=== PATIENT | female | born 1945 | race Caucasian/White ===

== ENCOUNTER 2018-01-25 14:30 | Outpatient (RCR) | payer MEDICARE, MEDICAID, SELFPAY ==
[2018-01-18 14:21] VITALS: BP 127/56; PULSE 79; RESP 18; TEMP 36.6; BMI 29.0
[2018-01-18 17:20] LABS: Hematocrit 40.8 % (37-47); Mean Corp Hgb Conc 31.9 g/gl (32-36); Mean Corpuscular Volume 87.7 fL (81-99); Mean Platelet Vol. 9.3 fl (6.2-12.0); Platelet Count 274 K/mm3 (150-450); RBC Distribution Width CV 13.6 % (11.6-14.6); RBC Distribution Width SD 43.2 fl (35.1-43.9); Red Blood Count 4.65 M/mm3 (4.2-5.4)
[2018-01-18 17:22] LABS: Scan Indicated on CBC? Y/N NO
--- NOTE | 2018-01-18 17:25 | PCM.WC.HP ---
(1) Surgical wound dehiscence Status: Chronic Current Visit: Yes Qualifiers: Encounter type: initial encounter Qualified Code(s): T81.31XA - Disruption of external operation (surgical) wound, not elsewhere classified, initial encounter Code(s): T81.31XA - Disruption of external operation (surgical) wound, not elsewhere classified, initial encounter (2) Wound of abdomen Status: Chronic Current Visit: Yes Code(s): S31.109A - Unspecified open wound of abdominal wall, unspecified quadrant without penetration into peritoneal cavity, initial encounter (3) Wound, open, abdominal wall, anterior Status: Chronic Current Visit: Yes Qualifiers: Encounter type: initial encounter Qualified Code(s): S31.109A - Unspecified open wound of abdominal wall, unspecified quadrant without penetration into peritoneal cavity, initial encounter Code(s): S31.109A - Unspecified open wound of abdominal wall, unspecified quadrant without penetration into peritoneal cavity, initial encounter (4) Lupus Status: Chronic Current Visit: No Code(s): L93.0 - Discoid lupus erythematosus (5) Hypertension Status: Chronic Current Visit: No Code(s): I10 - Essential (primary) hypertension (6) Seizure disorder Status: Chronic Current Visit: No Code(s): G40.909 - Epilepsy, unspecified, not intractable, without status epilepticus (7) Dementia Status: Chronic Current Visit: No Code(s): F03.90 - Unspecified dementia without behavioral disturbance (8) Renal insufficiency Status: Chronic Current Visit: No Code(s): N28.9 - Disorder of kidney and ureter, unspecified (9) Hyperlipidemia Status: Chronic Current Visit: No Code(s): E78.5 - Hyperlipidemia, unspecified (10) Overweight (BMI 25.0-29.9) Status: Chronic Current Visit: No Code(s): E66.3 - Overweight (11) Hypothyroidism Status: Chronic Current Visit: No Code(s): E03.9 - Hypothyroidism, unspecified (12) Skin picking habit Status: Chronic Current Visit: No Code(s): F42.4 - Excoriation (skin-picking) disorder (13) Compulsive skin picking Status: Chronic Current Visit: No Code(s): 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 The wound has been present for approximately 6 weeks. The patient has been treated by her primary care physician, having received a 10 day course of Keflex, a shot of Rocephin, and the use of Bactroban topically. There is uncertainty as to the surgical procedure which was performed in the , although years ago. The patient resides in an assisted living facility, and suffers from dementia, as well as other multiple medical problems. Past Medical History Past Medical History: Chronic Problems Surgical wound dehiscence (Chronic) Wound of abdomen (Chronic) Wound, open, abdominal wall, anterior (Chronic) Lupus (Chronic) Hypertension (Chronic) Seizure disorder (Chronic) Dementia (Chronic) Renal insufficiency (Chronic) Hyperlipidemia (Chronic) Overweight (BMI 25.0-29.9) (Chronic) Hypothyroidism (Chronic) Skin picking habit (Chronic) Compulsive skin picking (Chronic) Past Medical History: Patient has a history of lupus, hypertension, renal insufficiency, seizure disorder, hyperlipidemia, and hypothyroidism. Her history is negative for myocardial infarction, congestive heart failure, cerebrovascular accident, cancer, pulmonary disease, diabetes mellitus, and thromboembolic disease. Surgical History: - - Patient has a history of cholecystectomy, repair of a vaginal fissure, and abdominal surgery in the , the reason for which is not certain. She is a AB 5. Allergies/Adverse Reactions: Allergies Sulfa (Sulfonamide Antibiotics) Allergy (Verified 01/18/18 14:47) Hives Home Medications: Ambulatory Orders Medication Instructions Recorded Acetaminophen [Tylenol Extra 500 mg PO Q6H PRN PRN 01/18/18 Strength] Alprazolam [Xanax] 0.25 mg PO Q6H PRN PRN 01/18/18 Aspirin E.C. [Ecotrin] 81 mg PO DAILY@0801/18/18 Calcium Carbonate/Vitamin D3 1 tab PO BID 01/18/18 [Calcium 600-Vit D3 400 Tablet] Cephalexin 500 mg PO TID 01/18/18 Donepezil HCl 10 mg PO DAILY 01/18/18 Ferrous Sulfate 325 mg PO DAILY@0801/18/18 Lamotrigine 100 mg PO BID 01/18/18 Levothyroxine Sodium [Levoxyl] 25 mcg PO DAILY 01/18/18 Lisinopril [Zestril] 20 mg PO DAILY 01/18/18 Loratadine 10 mg PO DAILY 01/18/18 Memantine HCl [Namenda Xr] 28 mg PO DAILY 01/18/18 Multivitamin [Multiple Vitamins] 1 each PO DAILY 01/18/18 Omeprazole 40 mg PO DAILY 01/18/18 Potassium Chloride [Klor-Con] 20 meq PO DAILY 01/18/18 Quetiapine Fumarate [Seroquel] 25 mg PO QHS 01/18/18 Sertraline HCl [Zoloft] 100 mg PO DAILY 01/18/18 Simvastatin 20 mg PO DAILY 01/18/18 Sucralfate 1 gm PO TID 01/18/18 - Family History Paternal - - The patient's father in his 50s from black lung disease. He was a estate tax examiner. Patient's mother at the age of 70, with a history of chronic obstructive pulmonary disease, the result of smoking. Social History: The patient resides in an assisted living facility. She is a . She denies the use of alcohol and tobacco products. Smoking Status: Never smoker Tobacco Use: Non-smoker Alcohol: None Drugs: None Review of Systems Constitutional: Denies: Chills, Fever, Weight Change Eyes: Denies: Pain, Vision Change HEENT: Denies: Difficulty Hearing, Difficulty Swallowing, Sinus Congestion Cardiovascular: Denies: Chest Pain, Palpitations Respiratory: Denies: Cough, Shortness of Breath Gastrointestinal: Denies: Diarrhea, Nausea, Vomiting Genitourinary: Denies: Dysuria, Hematuria Endocrine: Denies: Heat/ Cold Intolerance, Polydipsia, Polyuria Hematologic/ Lymphatic: Denies: Easy Bruising, Easy Bleeding - Physical Exam Vital Signs Temp Pulse Resp BP 97.8 F 79 18 127/56 H 01/18/18 14:21 01/18/18 14:21 01/18/18 14:21 01/18/18 14:21 General: Alert, Oriented x3, Cooperative, No apparent distress, Well developed, Well nourished, Confused HEENT: Atraumatic, PERRLA, EOMI, Normocephalic Oral: Moist Mucosa, No Gingival or Mucosal Lesions/ Ulcerations Neck: Supple, No JVD, Negative Carotid Bruits, Negative Hepatojugular Reflux, No Nodes, No Nuchal Rigidity, Trachea Midline Lungs: Clear to auscultation, Normal air movement, No rhonchi, No wheeze, No rales Cardiovascular: Regular rate, Regular Rhythm, Normal S1, Normal S2, No murmurs, No Ectopic Activity Abdomen: Bowel Sounds Present, Soft, Non Tender, Non-Distended, - - A very superficial wound as noted in the midst of the patient's vertical midline incision inferior to the umbilicus. Dimensions are documented elsewhere. It is superficial. Extremities: No clubbing, No cyanosis, No edema, No Calf Tenderness, - - Superficial excoriations are noted near the patient's ankles, said to be due to chronic habitual picking Skin: No rashes Wound Measurements and Assessment WC - Nurse 1 - General Ulcer Measurement Start: 01/18/18 14:21 Freq: Status: Active Protocol: Activity Type Activity Date Activity User E-Sign Co-Sign Detail Recorded Client Recorded Date Recorded By Document 01/18/18 14:21 [id number] 01/18/18 14:37 01/18/18 14:21 Wound Center Nurse 1 [Ulcer Assessment] 1-abdomen -Combined with other wound No -Current Size (cm) - Length 3.2 -Current Size (cm) - Width 0.1 -Current Size (cm) - Depth 0.1 -Total Square Cm 0.32 -Photo Taken Yes -Epithelialization Large 67-100% -Tunneling No -Undermining/Tunneling No -Circular Undermining No -Exudate Amt Small (1-33%) -Exudate Type Serosanguineous -Wound Margin Flat & Intact -Granulation Amt Large (67-100%) -Granulation Quality Red -Slough/Fibrin Yes -Necrosis Amt Small (1-33%) -Necrotic Tissue Type Adherent Slough -Structure Exposed N/A -Texture (Hazel-wound Skin Appearance) Assessed Scarring -Moisture (Hazel-wound Skin Appearance Assessed ) Dry/Scaly -Color (Hazel-wound Skin Appearance) Assessed -Temperature (Hazel-wound Skin No Abnormality Appearance) (Pt Warm) -Tenderness on Palpation (Hazel-wound No Skin Appearance) -Ulcer Cleansing Rinsed/ Irrigated with Saline -Foul Odor after Cleansing No -Anesthetic Used 4% Lidocaine Solution [Edema Assessment] -Lower Limb Edema Present NA - Nurse 2 - General Ulcer CM Notes Start: 01/18/18 14:21 Freq: Status: Active Protocol: Activity Type Activity Date Activity User E-Sign Co-Sign Detail Recorded Client Recorded Date Recorded By Document 01/18/18 16:05 [id number] 01/18/18 16:34 01/18/18 16:05 Wound Center Nurse 2 [Procedure/Treatment] 1-abdomen -Time 16:05 -Correct Patient Yes -Correct Side, Site, Position Yes -Correct Procedure Yes -Procedure Performed Yes -Type of Procedure Debridement -Clinical Debridement Subcutaneous -Post Debridement Size (cm) - Length 1.0 -Post Debridement Size (cm) - Width 0.2 -Post Debridement Size (cm) - Depth 0.1 -Total Square Cm 0.20 -Wound/Ulcer Outcome Not Healed -Ulcer Cleansing Rinsed/ Irrigated with Saline -Foul Odor after Cleansing No -Bioengineered Tissue No -Topical Lidocaine (%) 4 -Lidocaine (ml) 5 -Bleeding Controlled with NA -Treatment Response Procedure Tolerated Well [See Physician Procedure note for Specifics] Pain Scale: 0-10 Numeric [Pain] -Is Patient Pain Free? Yes Neurological: Cranial nerves II-XII grossly intact, Neuro grossly intact Psych/Mental Status: - - Some mild signs of dementia are apparent Debridement Note Post-Debridement Measurements/Treatment - Nurse 2 - General Ulcer CM Notes Start: 01/18/18 14:21 Freq: Status: Active Protocol: Activity Type Activity Date Activity User E-Sign Co-Sign Detail Recorded Client Recorded Date Recorded By Document 01/18/18 16:05 [id number] 01/18/18 16:34 01/18/18 16:05 Wound Center Nurse 2 1-abdomen -Time 16:05 -Correct Patient Yes -Correct Side, Site, Position Yes -Correct Procedure Yes -Procedure Performed Yes -Type of Procedure Debridement -Clinical Debridement Subcutaneous -Post Debridement Size (cm) - Length 1.0 -Post Debridement Size (cm) - Width 0.2 -Post Debridement Size (cm) - Depth 0.1 -Total Square Cm 0.20 -Wound/Ulcer Outcome Not Healed -Ulcer Cleansing Rinsed/ Irrigated with Saline -Foul Odor after Cleansing No -Bioengineered Tissue No -Topical Lidocaine (%) 4 -Lidocaine (ml) 5 -Bleeding Controlled with NA -Treatment Response Procedure Tolerated Well Pain Scale: 0-10 Numeric Is Patient Pain Free? Yes Laterality: Not Applicable - Abdominal wound at incision site, midline Type of Debridement: Excisional debridement Anesthesia Used: 4% Lidocaine Solution Depth: Down to and including healthy tissue, in the subcutaneous layer Percentage of wound debrided: 100 Instrument Used: 5mm curette Severity: Fat Layer Exposed Amount of bleeding with debridement: Mild Bleeding Controlled with: Compression and gauze Patient tolerated procedure well Assessment/Plan Active Problems Surgical wound dehiscence (Chronic) Wound of abdomen (Chronic) Wound, open, abdominal wall, anterior (Chronic) Assessment: This is a 72-year-old female who underwent an abdominal surgical procedure in the , though the nature of the surgery is unknown. The procedure was performed by means of an infraumbilical vertical midline incision. The patient presents now with a small dehiscence at the surgical incision site, which has been present for approximately 6 weeks. It is known that the patient tends to be habitual chart picker of her skin. In fact, the patient's presenting abdominal wound may be related to her habitual picking tendency. Based upon physical examination, the wound is superficial, and does not appear to extend into the deeper layers. Plan: Adequate nutrition has been encouraged. We are to obtain routine laboratory blood work, including a CBC, comprehensive metabolic profile, and a serum prealbumin. We are to use a sterile adhesive drape overlying the patient's wound, and to use an overlying dressing to serve as a preventative measure against the patient using her fingers or fingernails to pick at her wound. The small size and superficial nature of the patient's wound suggests that healing should be likely in a short period of time. Patient will return in 1 week for reassessment. Influenza vaccine was not administered. The patient is not a smoker. The patient stands 5 feet 1 inch tall. She weighs 154 pounds. Her BMI is 29.1. This places the patient in the overweight category. Weight loss has been recommended, and collaboration with the patient's primary care physician has been suggested.
--- NOTE | 2018-01-18 17:43 | HP.PCM_ITS ---
(1) Surgical wound dehiscence Status: Chronic Current Visit: Yes Qualifiers: Encounter type: initial encounter Qualified Code(s): T81.31XA - Disruption of external operation (surgical) wound, not elsewhere classified, initial encounter Code(s): T81.31XA - Disruption of external operation (surgical) wound, not elsewhere classified, initial encounter (2) Wound of abdomen Status: Chronic Current Visit: Yes Code(s): S31.109A - Unspecified open wound of abdominal wall, unspecified quadrant without penetration into peritoneal cavity, initial encounter (3) Wound, open, abdominal wall, anterior Status: Chronic Current Visit: Yes Qualifiers: Encounter type: initial encounter Qualified Code(s): S31.109A - Unspecified open wound of abdominal wall, unspecified quadrant without penetration into peritoneal cavity, initial encounter Code(s): S31.109A - Unspecified open wound of abdominal wall, unspecified quadrant without penetration into peritoneal cavity, initial encounter (4) Lupus Status: Chronic Current Visit: No Code(s): L93.0 - Discoid lupus erythematosus (5) Hypertension Status: Chronic Current Visit: No Code(s): I10 - Essential (primary) hypertension (6) Seizure disorder Status: Chronic Current Visit: No Code(s): G40.909 - Epilepsy, unspecified, not intractable, without status epilepticus (7) Dementia Status: Chronic Current Visit: No Code(s): F03.90 - Unspecified dementia without behavioral disturbance (8) Renal insufficiency Status: Chronic Current Visit: No Code(s): N28.9 - Disorder of kidney and ureter, unspecified (9) Hyperlipidemia Status: Chronic Current Visit: No Code(s): E78.5 - Hyperlipidemia, unspecified (10) Overweight (BMI 25.0-29.9) Status: Chronic Current Visit: No Code(s): E66.3 - Overweight (11) Hypothyroidism Status: Chronic Current Visit: No Code(s): E03.9 - Hypothyroidism, unspecified (12) Skin picking habit Status: Chronic Current Visit: No Code(s): F42.4 - Excoriation (skin-picking ) disorder (13) Compulsive skin picking Status: Chronic Current Visit: No Code(s): 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 The wound has been present for approximately 6 weeks. The patient has been treated by her primary care physician, having received a 10 day course of Keflex, a shot of Rocephin, and the use of Bactroban topically. There is uncertainty as to the surgical procedure which was performed in the , although years ago. The patient resides in an assisted living facility, and suffers from dementia, as well as other multiple medical problems. Past Medical History Past Medical History: Chronic Problems Surgical wound dehiscence (Chronic) Wound of abdomen (Chronic) Wound, open, abdominal wall, anterior (Chronic) Lupus (Chronic) Hypertension (Chronic) Seizure disorder (Chronic) Dementia (Chronic) Renal insufficiency (Chronic) Hyperlipidemia (Chronic) Overweight (BMI 25.0-29.9) (Chronic) Hypothyroidism (Chronic) Skin picking habit (Chronic) Compulsive skin picking (Chronic) Past Medical History: Patient has a history of lupus, hypertension, renal insufficiency, seizure disorder, hyperlipidemia, and hypothyroidism. Her history is negative for myocardial infarction, congestive heart failure, cerebrovascular accident, cancer, pulmonary disease, diabetes mellitus, and thromboembolic disease. Surgical History: - - Patient has a history of cholecystectomy, repair of a vaginal fissure, and abdominal surgery in the , the reason for which is not certain. She is a AB 5. Allergies/Adverse Reactions: Allergies Sulfa (Sulfonamide Antibiotics) Allergy (Verified 01/18/18 14:47) Hives Home Medications: Ambulatory Orders Medication Instructions Recorded Acetaminophen [Tylenol Extra 500 mg PO Q6H PRN PRN 01/18/18 Strength] Alprazolam [Xanax] 0.25 mg PO Q6H PRN PRN 01/18/18 Aspirin E.C. [Ecotrin] 81 mg PO DAILY@0801/18/18 Calcium Carbonate/Vitamin D3 1 tab PO BID 01/18/18 [Calcium 600-Vit D3 400 Tablet] Cephalexin 500 mg PO TID 01/18/18 Donepezil HCl 10 mg PO DAILY 01/18/18 Ferrous Sulfate 325 mg PO DAILY@0801/18/18 Lamotrigine 100 mg PO BID 01/18/18 Levothyroxine Sodium [Levoxyl] 25 mcg PO DAILY 01/18/18 Lisinopril [Zestril] 20 mg PO DAILY 01/18/18 Loratadine 10 mg PO DAILY 01/18/18 Memantine HCl [Namenda Xr] 28 mg PO DAILY 01/18/18 Multivitamin [Multiple Vitamins] 1 each PO DAILY 01/18/18 Omeprazole 40 mg PO DAILY 01/18/18 Potassium Chloride [Klor-Con] 20 meq PO DAILY 01/18/18 Quetiapine Fumarate [Seroquel] 25 mg PO QHS 01/18/18 Sertraline HCl [Zoloft] 100 mg PO DAILY 01/18/18 Simvastatin 20 mg PO DAILY 01/18/18 Sucralfate 1 gm PO TID 01/18/18 - Family History Paternal - - The patient's father in his 50s from black lung disease. He was a coal washer. Patient's mother at the age of 70, with a history of chronic obstructive pulmonary disease, the result of smoking. Social History: The patient resides in an assisted living facility. She is a . She denies the use of alcohol and tobacco products. Smoking Status: Never smoker Tobacco Use: Non-smoker Alcohol: None Drugs: None Review of Systems Constitutional: Denies: Chills, Fever, Weight Change Eyes: Denies: Pain, Vision Change HEENT: Denies: Difficulty Hearing, Difficulty Swallowing, Sinus Congestion Cardiovascular: Denies: Chest Pain, Palpitations Respiratory: Denies: Cough, Shortness of Breath Gastrointestinal: Denies: Diarrhea, Nausea, Vomiting Genitourinary: Denies: Dysuria, Hematuria Endocrine: Denies: Heat/ Cold Intolerance, Polydipsia, Polyuria Hematologic/ Lymphatic: Denies: Easy Bruising, Easy Bleeding - Physical Exam Vital Signs Temp Pulse Resp BP 97.8 F 79 18 127/56 H 01/18/18 14:21 01/18/18 14:21 01/18/18 14:21 01/18/18 14:21 General: Alert, Oriented x3, Cooperative, No apparent distress, Well developed, Well nourished, Confused HEENT: Atraumatic, PERRLA, EOMI, Normocephalic Oral: Moist Mucosa, No Gingival or Mucosal Lesions/ Ulcerations Neck: Supple, No JVD, Negative Carotid Bruits, Negative Hepatojugular Reflux, No Nodes, No Nuchal Rigidity, Trachea Midline Lungs: Clear to auscultation, Normal air movement, No rhonchi, No wheeze, No rales Cardiovascular: Regular rate, Regular Rhythm, Normal S1, Normal S2, No murmurs, No Ectopic Activity Abdomen: Bowel Sounds Present, Soft, Non Tender, Non-Distended, - - A very superficial wound as noted in the midst of the patient's vertical midline incision inferior to the umbilicus. Dimensions are documented elsewhere. It is superficial. Extremities: No clubbing, No cyanosis, No edema, No Calf Tenderness, - - Superficial excoriations are noted near the patient's ankles, said to be due to chronic habitual picking Skin: No rashes Wound Measurements and Assessment WC - Nurse 1 - General Ulcer Measurement Start: 01/18/18 14:21 Freq: Status: Active Protocol: Activity Type Activity Date Activity User E-Sign Co-Sign Detail Recorded Client Recorded Date Recorded By Document 01/18/18 14:21 [id number] 01/18/18 14:37 01/18/18 14:21 Wound Center Nurse 1 [Ulcer Assessment] 1-abdomen -Combined with other wound No -Current Size (cm) - Length 3.2 -Current Size (cm) - Width 0.1 -Current Size (cm) - Depth 0.1 -Total Square Cm 0.32 -Photo Taken Yes -Epithelialization Large 67-100% -Tunneling No -Undermining/Tunneling No -Circular Undermining No -Exudate Amt Small (1-33%) -Exudate Type Serosanguineous -Wound Margin Flat & Intact -Granulation Amt Large (67-100%) -Granulation Quality Red -Slough/Fibrin Yes -Necrosis Amt Small (1-33%) -Necrotic Tissue Type Adherent Slough -Structure Exposed N/A -Texture (Hazel-wound Skin Appearance) Assessed Scarring -Moisture (Hazel-wound Skin Appearance Assessed ) Dry/Scaly -Color (Hazel-wound Skin Appearance) Assessed -Temperature (Hazel-wound Skin No Abnormality Appearance) (Pt Warm) -Tenderness on Palpation (Hazel-wound No Skin Appearance) -Ulcer Cleansing Rinsed/ Irrigated with Saline -Foul Odor after Cleansing No -Anesthetic Used 4% Lidocaine Solution [Edema Assessment] -Lower Limb Edema Present NA - Nurse 2 - General Ulcer CM Notes Start: 01/18/18 14:21 Freq: Status: Active Protocol: Activity Type Activity Date Activity User E-Sign Co-Sign Detail Recorded Client Recorded Date Recorded By Document 01/18/18 16:05 [id number] 01/18/18 16:34 01/18/18 16:05 Wound Center Nurse 2 [Procedure/Treatment] 1-abdomen -Time 16:05 -Correct Patient Yes -Correct Side, Site, Position Yes -Correct Procedure Yes -Procedure Performed Yes -Type of Procedure Debridement -Clinical Debridement Subcutaneous -Post Debridement Size (cm) - Length 1.0 -Post Debridement Size (cm) - Width 0.2 -Post Debridement Size (cm) - Depth 0.1 -Total Square Cm 0.20 -Wound/Ulcer Outcome Not Healed -Ulcer Cleansing Rinsed/ Irrigated with Saline -Foul Odor after Cleansing No -Bioengineered Tissue No -Topical Lidocaine (%) 4 -Lidocaine (ml) 5 -Bleeding Controlled with NA -Treatment Response Procedure Tolerated Well [See Physician Procedure note for Specifics] Pain Scale: 0-10 Numeric [Pain] -Is Patient Pain Free? Yes Neurological: Cranial nerves II-XII grossly intact, Neuro grossly intact Psych/Mental Status: - - Some mild signs of dementia are apparent Debridement Note Post-Debridement Measurements/Treatment - Nurse 2 - General Ulcer CM Notes Start: 01/18/18 14:21 Freq: Status: Active Protocol: Activity Type Activity Date Activity User E-Sign Co-Sign Detail Recorded Client Recorded Date Recorded By Document 01/18/18 16:05 [id number] 01/18/18 16:34 01/18/18 16:05 Wound Center Nurse 2 1-abdomen -Time 16:05 -Correct Patient Yes -Correct Side, Site, Position Yes -Correct Procedure Yes -Procedure Performed Yes -Type of Procedure Debridement -Clinical Debridement Subcutaneous -Post Debridement Size (cm) - Length 1.0 -Post Debridement Size (cm) - Width 0.2 -Post Debridement Size (cm) - Depth 0.1 -Total Square Cm 0.20 -Wound/Ulcer Outcome Not Healed -Ulcer Cleansing Rinsed/ Irrigated with Saline -Foul Odor after Cleansing No -Bioengineered Tissue No -Topical Lidocaine (%) 4 -Lidocaine (ml) 5 -Bleeding Controlled with NA -Treatment Response Procedure Tolerated Well Pain Scale: 0-10 Numeric Is Patient Pain Free? Yes Laterality: Not Applicable - Abdominal wound at incision site, midline Type of Debridement: Excisional debridement Anesthesia Used: 4% Lidocaine Solution Depth: Down to and including healthy tissue, in the subcutaneous layer Percentage of wound debrided: 100 Instrument Used: 5mm curette Severity: Fat Layer Exposed Amount of bleeding with debridement: Mild Bleeding Controlled with: Compression and gauze Patient tolerated procedure well Assessment/Plan Active Problems Surgical wound dehiscence (Chronic) Wound of abdomen (Chronic) Wound, open, abdominal wall, anterior (Chronic) Assessment: This is a 72-year-old female who underwent an abdominal surgical procedure in the , though the nature of the surgery is unknown. The procedure was performed by means of an infraumbilical vertical midline incision. The patient presents now with a small dehiscence at the surgical incision site, which has been present for approximately 6 weeks. It is known that the patient tends to be habitual shrimp picker of her skin. In fact, the patient' s presenting abdominal wound may be related to her habitual picking tendency. Based upon physical examination, the wound is superficial, and does not appear to extend into the deeper layers. Plan: Adequate nutrition has been encouraged. We are to obtain routine laboratory blood work, including a CBC, comprehensive metabolic profile, and a serum prealbumin. We are to use a sterile adhesive drape overlying the patient' s wound, and to use an overlying dressing to serve as a preventative measure against the patient using her fingers or fingernails to pick at her wound. The small size and superficial nature of the patient's wound suggests that healing should be likely in a short period of time. Patient will return in 1 week for reassessment. Influenza vaccine was not administered. The patient is not a smoker. The patient stands 5 feet 1 inch tall. She weighs 154 pounds. Her BMI is 29.1. This places the patient in the overweight category. Weight loss has been recommended, and collaboration with the patient's primary care physician has been suggested.
[2018-01-18 17:48] LABS: AST(SGOT) 16 U/L (15-37); Alanine Aminotransfer ALT/SGPT 21 U/L (13-56); Albumin, Serum 3.7 g/dL (3.2-5.0); Alkaline Phosphatase 66 U/L (45-117); Anion Gap 8 (5-15); BUN 10 mg/dL (7-18); BUN/Creat Ratio 12.9 RATIO (10-20); Calcium,Total 8.8 mg/dL (8.5-10.1); Chloride 108 mmol/L (98-107); Creatinine, Serum 0.78 mg/dL (0.55-1.02); EST Glomerular Filtration Rate 78 mL/min (>60); Est Glom Filt Rate - Afr Amer 94 mL/min (>60); Globulin 3.6 g/dL (2.2-4.2); Glucose 105 mg/dL (74-106); Potassium 3.8 mmol/L (3.5-5.1); Protein, Total 7.3 g/dL (6.4-8.2); Sodium Level 142 mmol/L (136-145)
[2018-01-25 14:34] VITALS: BP 124/61; PULSE 70; RESP 18; TEMP 36.7; BMI 29.0
--- NOTE | 2018-01-25 15:36 | PCM.WC.HP ---
(1) Surgical wound dehiscence Status: Chronic Current Visit: Yes Qualifiers: Encounter type: subsequent encounter Qualified Code(s): T81.31XD - Disruption of external operation (surgical) wound, not elsewhere classified, subsequent encounter Code(s): T81.31XA - Disruption of external operation (surgical) wound, not elsewhere classified, initial encounter (2) Wound of abdomen Status: Chronic Current Visit: Yes Code(s): S31.109A - Unspecified open wound of abdominal wall, unspecified quadrant without penetration into peritoneal cavity, initial encounter (3) Wound, open, abdominal wall, anterior Status: Chronic Current Visit: Yes Qualifiers: Encounter type: subsequent encounter Qualified Code(s): S31.109D - Unspecified open wound of abdominal wall, unspecified quadrant without penetration into peritoneal cavity, subsequent encounter Code(s): S31.109A - Unspecified open wound of abdominal wall, unspecified quadrant without penetration into peritoneal cavity, initial encounter (4) Lupus Status: Chronic Current Visit: No Code(s): L93.0 - Discoid lupus erythematosus (5) Hypertension Status: Chronic Current Visit: No Code(s): I10 - Essential (primary) hypertension (6) Seizure disorder Status: Chronic Current Visit: No Code(s): G40.909 - Epilepsy, unspecified, not intractable, without status epilepticus (7) Dementia Status: Chronic Current Visit: No Code(s): F03.90 - Unspecified dementia without behavioral disturbance (8) Renal insufficiency Status: Chronic Current Visit: No Code(s): N28.9 - Disorder of kidney and ureter, unspecified (9) Hyperlipidemia Status: Chronic Current Visit: No Code(s): E78.5 - Hyperlipidemia, unspecified (10) Overweight (BMI 25.0-29.9) Status: Chronic Current Visit: No Code(s): E66.3 - Overweight (11) Hypothyroidism Status: Chronic Current Visit: No Code(s): E03.9 - Hypothyroidism, unspecified (12) Skin picking habit Status: Chronic Current Visit: Yes Code(s): F42.4 - Excoriation (skin-picking) disorder (13) Compulsive skin picking Status: Chronic Current Visit: Yes Code(s): 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 The wound had been present for approximately 6 weeks. The patient has been treated by her primary care physician, having received a 10 day course of Keflex, a shot of Rocephin, and the use of Bactroban topically. There is uncertainty as to the surgical procedure which was performed in the . The patient resides in an assisted living facility, and suffers from dementia, as well as other multiple medical problems. Past Medical History Past Medical History: Chronic Problems Surgical wound dehiscence (Chronic) Wound of abdomen (Chronic) Wound, open, abdominal wall, anterior (Chronic) Lupus (Chronic) Hypertension (Chronic) Seizure disorder (Chronic) Dementia (Chronic) Renal insufficiency (Chronic) Hyperlipidemia (Chronic) Overweight (BMI 25.0-29.9) (Chronic) Hypothyroidism (Chronic) Skin picking habit (Chronic) Compulsive skin picking (Chronic) Surgical History: - - Patient has a history of cholecystectomy, repair of a vaginal fissure, and abdominal surgery in the , the reason for which is not certain. She is a AB 5. Allergies/Adverse Reactions: Allergies Sulfa (Sulfonamide Antibiotics) Allergy (Verified 01/18/18 14:47) Hives Home Medications: Ambulatory Orders Medication Instructions Recorded Acetaminophen [Tylenol Extra 500 mg PO Q6H PRN PRN 01/18/18 Strength] Alprazolam [Xanax] 0.25 mg PO Q6H PRN PRN 01/18/18 Aspirin E.C. [Ecotrin] 81 mg PO DAILY@0800 01/18/18 Calcium Carbonate/Vitamin D3 1 tab PO BID 01/18/18 [Calcium 600-Vit D3 400 Tablet] Cephalexin 500 mg PO TID 01/18/18 Donepezil HCl 10 mg PO DAILY 01/18/18 Ferrous Sulfate 325 mg PO DAILY@0800 01/18/18 Lamotrigine 100 mg PO BID 01/18/18 Levothyroxine Sodium [Levoxyl] 25 mcg PO DAILY 01/18/18 Lisinopril [Zestril] 20 mg PO DAILY 01/18/18 Loratadine 10 mg PO DAILY 01/18/18 Memantine HCl [Namenda Xr] 28 mg PO DAILY 01/18/18 Multivitamin [Multiple Vitamins] 1 each PO DAILY 01/18/18 Omeprazole 40 mg PO DAILY 01/18/18 Potassium Chloride [Klor-Con] 20 meq PO DAILY 01/18/18 Quetiapine Fumarate [Seroquel] 25 mg PO QHS 01/18/18 Sertraline HCl [Zoloft] 100 mg PO DAILY 01/18/18 Simvastatin 20 mg PO DAILY 01/18/18 Sucralfate 1 gm PO TID 01/18/18 - Family History Paternal - - The patient's father in his 50s from black lung disease. He was a coal tram driver. Patient's mother at the age of 70, with a history of chronic obstructive pulmonary disease, the result of smoking. Smoking Status: Never smoker Tobacco Use: Non-smoker Alcohol: None Drugs: None Review of Systems Constitutional: Denies: Chills, Fever, Weight Change Eyes: Denies: Pain, Vision Change HEENT: Denies: Difficulty Hearing, Difficulty Swallowing, Sinus Congestion Cardiovascular: Denies: Chest Pain, Palpitations Respiratory: Denies: Cough, Shortness of Breath Gastrointestinal: Denies: Diarrhea, Nausea, Vomiting Genitourinary: Denies: Dysuria, Hematuria Endocrine: Denies: Heat/ Cold Intolerance, Polydipsia, Polyuria Hematologic/ Lymphatic: Denies: Easy Bruising, Easy Bleeding - Physical Exam Vital Signs Temp Pulse Resp BP 98.0 F 70 18 124/61 H 01/25/18 14:34 01/25/18 14:34 01/25/18 14:34 01/25/18 14:34 General: Alert, Oriented x3, Cooperative, No apparent distress, Well developed, Well nourished HEENT: Atraumatic, PERRLA, EOMI, Normocephalic Oral: Moist Mucosa Neck: No JVD Lungs: Normal air movement Abdomen: Bowel Sounds Present, Soft, Non Tender, Non-Distended, Obese, - - The wound is noted at the superior portion of a previous vertical midline incision inferior to the umbilicus. It is very small, and superficial. There is no sign of infection. Dimensions are documented elsewhere. There is minimal bioburden. The base of the wound is pink and healthy. Extremities: No clubbing, No cyanosis, No edema, No Calf Tenderness Skin: No rashes Wound Measurements and Assessment WC - Nurse 1 - General Ulcer Measurement Start: 01/18/18 14:21 Freq: Status: Active Protocol: Activity Type Activity Date Activity User E-Sign Co-Sign Detail Recorded Client Recorded Date Recorded By Document 01/25/18 14:34 BERHANE [id number] 01/25/18 14:43 BERHANE 01/25/18 14:34 Wound Center Nurse 1 [Ulcer Assessment] 1-abdomen -Combined with other wound No -Current Size (cm) - Length 1.2 -Current Size (cm) - Width 0.5 -Current Size (cm) - Depth 0.1 -Total Square Cm 0.60 -Photo Taken No -Epithelialization Small 1-33% -Tunneling No -Undermining/Tunneling No -Circular Undermining No -Exudate Amt Small (1-33%) -Exudate Type Serosanguineous -Wound Margin Flat & Intact -Granulation Amt Medium (34-66%) -Granulation Quality [place] -Slough/Fibrin Yes -Necrosis Amt Small (1-33%) -Necrotic Tissue Type Adherent Slough -Structure Exposed N/A -Texture (Hazel-wound Skin Appearance) Assessed Localized Edema Scarring -Moisture (Hazel-wound Skin Appearance Assessed ) Dry/Scaly -Color (Hazel-wound Skin Appearance) Assessed -Temperature (Hazel-wound Skin No Abnormality Appearance) (Pt Warm) -Tenderness on Palpation (Hazel-wound No Skin Appearance) -Ulcer Cleansing Rinsed/ Irrigated with Saline -Foul Odor after Cleansing No -Anesthetic Used 4% Lidocaine Solution [Edema Assessment] -Lower Limb Edema Present NA WC - Nurse 2 - General Ulcer CM Notes Start: 01/18/18 14:21 Freq: Status: Active Protocol: Activity Type Activity Date Activity User E-Sign Co-Sign Detail Recorded Client Recorded Date Recorded By Document 01/25/18 15:18 LAURA [id number] 01/25/18 15:27 LAURA 01/25/18 15:18 Wound Center Nurse 2 [Procedure/Treatment] 1-abdomen -Time 15:18 -Correct Patient Yes -Correct Side, Site, Position Yes -Correct Procedure Yes -Procedure Performed Yes -Type of Procedure Debridement -Clinical Debridement Subcutaneous -Post Debridement Size (cm) - Length 1.3 -Post Debridement Size (cm) - Width 0.4 -Post Debridement Size (cm) - Depth 0.1 -Total Square Cm 0.52 -Wound/Ulcer Outcome Not Healed -Ulcer Cleansing Rinsed/ Irrigated with Saline -Foul Odor after Cleansing No -Bioengineered Tissue No -Topical Lidocaine (%) 4 -Lidocaine (ml) 5 -Bleeding Controlled with NA -Treatment Response Procedure Tolerated Well [See Physician Procedure note for Specifics] Pain Scale: 0-10 Numeric [Pain] -Is Patient Pain Free? Yes Neurological: Cranial nerves II-XII grossly intact, Neuro grossly intact Psych/Mental Status: - - The patient suffers from dementia, and others repetitive statements, appearing to exhibit the outward signs of her dementia. Debridement Note Post-Debridement Measurements/Treatment WC - Nurse 2 - General Ulcer CM Notes Start: 01/18/18 14:21 Freq: Status: Active Protocol: Activity Type Activity Date Activity User E-Sign Co-Sign Detail Recorded Client Recorded Date Recorded By Document 01/18/18 16:05 [id number] 01/18/18 16:34 Document 01/25/18 15:18 [id number] 01/25/18 15:27 JS 01/18/18 01/25/18 16:05 15:18 Wound Center Nurse 2 1-abdomen -Time 16:05 15:18 -Correct Patient Yes Yes -Correct Side, Site, Position Yes Yes -Correct Procedure Yes Yes -Procedure Performed Yes Yes -Type of Procedure Debridement Debridement -Clinical Debridement Subcutaneous Subcutaneous -Post Debridement Size (cm) - Length 1.0 1.3 -Post Debridement Size (cm) - Width 0.2 0.4 -Post Debridement Size (cm) - Depth 0.1 0.1 -Total Square Cm 0.20 0.52 -Wound/Ulcer Outcome Not Healed Not Healed -Ulcer Cleansing Rinsed/ Rinsed/ Irrigated with Irrigated with Saline Saline -Foul Odor after Cleansing No No -Bioengineered Tissue No No -Topical Lidocaine (%) 4 4 -Lidocaine (ml) 5 5 -Bleeding Controlled with NA NA -Treatment Response Procedure Procedure Tolerated Well Tolerated Well Pain Scale: 0-10 Numeric Is Patient Pain Free? Yes Yes Laterality: Not Applicable - Midline abdominal incision Type of Debridement: Excisional debridement Anesthesia Used: 4% Lidocaine Solution Depth: Down to and including healthy tissue, in the subcutaneous layer Percentage of wound debrided: 100 Instrument Used: 3mm curette Severity: Fat Layer Exposed Amount of bleeding with debridement: Mild Bleeding Controlled with: Compression and gauze Patient tolerated procedure well Assessment/Plan Active Problems Surgical wound dehiscence (Chronic) Wound of abdomen (Chronic) Wound, open, abdominal wall, anterior (Chronic) Skin picking habit (Chronic) Compulsive skin picking (Chronic) Assessment: This is a 72-year-old female who underwent an abdominal surgical procedure in the , though the nature of the surgery is unknown. The procedure was performed by means of an infraumbilical vertical midline incision. The patient presented with a small dehiscence at the surgical incision site, which had been present for approximately 6 weeks. 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 In fact, the patient's presenting abdominal wound may be related to her habitual picking tendency. Based upon physical examination, the wound is superficial, and does not appear to extend into the deeper layers. The battery of diagnostic laboratory tests has been obtained, with results as follows: White blood count 6.0, hemoglobin 13.0, hematocrit 40.8, platelets 274,000, glucose 105, BUN 10 creatinine 0.78, total protein 7.3, albumin 3.7, calcium 8.8, AST 16, alkaline phosphatase 66, ALT 21, total bilirubin 0.10, sodium 142, potassium 3.8, chloride 108, prealbumin 29.0. Plan: Adequate nutrition has been encouraged. We are to implement the use of collagen hydrogel topically, applied every other day. An occlusive drape will then be applied. 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 It is learned that the original dressing placed last week, lasted only 2 days, presumably due to removal by the patient herself. We are to contact assisted living nursing personnel, to emphasize that efforts should be implemented to prevent patient from removing her dressings, and picking or scratching at her wound. The small size and superficial nature of the patient's wound suggests that healing should be likely in a short period of time. Patient will return in 2 weeks for reassessment, as she has transportation issues next week, and will be unable to return next week. Influenza vaccine was not administered. The patient is not a smoker. The patient stands 5 feet 1 inch tall. She weighs 154 pounds. Her BMI is 29.1. This places the patient in the overweight category. Weight loss has been recommended, and collaboration with the patient's primary care physician has been suggested.
--- NOTE | 2018-01-25 15:44 | HP.PCM_ITS ---
(1) Surgical wound dehiscence Status: Chronic Current Visit: Yes Qualifiers: Encounter type: subsequent encounter Qualified Code(s): T81.31XD - Disruption of external operation (surgical) wound, not elsewhere classified, subsequent encounter Code(s): T81.31XA - Disruption of external operation (surgical) wound, not elsewhere classified, initial encounter (2) Wound of abdomen Status: Chronic Current Visit: Yes Code(s): S31.109A - Unspecified open wound of abdominal wall, unspecified quadrant without penetration into peritoneal cavity, initial encounter (3) Wound, open, abdominal wall, anterior Status: Chronic Current Visit: Yes Qualifiers: Encounter type: subsequent encounter Qualified Code(s): S31.109D - Unspecified open wound of abdominal wall, unspecified quadrant without penetration into peritoneal cavity, subsequent encounter Code(s): S31.109A - Unspecified open wound of abdominal wall, unspecified quadrant without penetration into peritoneal cavity, initial encounter (4) Lupus Status: Chronic Current Visit: No Code(s): L93.0 - Discoid lupus erythematosus (5) Hypertension Status: Chronic Current Visit: No Code(s): I10 - Essential (primary) hypertension (6) Seizure disorder Status: Chronic Current Visit: No Code(s): G40.909 - Epilepsy, unspecified, not intractable, without status epilepticus (7) Dementia Status: Chronic Current Visit: No Code(s): F03.90 - Unspecified dementia without behavioral disturbance (8) Renal insufficiency Status: Chronic Current Visit: No Code(s): N28.9 - Disorder of kidney and ureter, unspecified (9) Hyperlipidemia Status: Chronic Current Visit: No Code(s): E78.5 - Hyperlipidemia, unspecified (10) Overweight (BMI 25.0-29.9) Status: Chronic Current Visit: No Code(s): E66.3 - Overweight (11) Hypothyroidism Status: Chronic Current Visit: No Code(s): E03.9 - Hypothyroidism, unspecified (12) Skin picking habit Status: Chronic Current Visit: Yes Code(s): 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 The wound had been present for approximately 6 weeks. The patient has been treated by her primary care physician, having received a 10 day course of Keflex, a shot of Rocephin, and the use of Bactroban topically. There is uncertainty as to the surgical procedure which was performed in the . The patient resides in an assisted living facility, and suffers from dementia, as well as other multiple medical problems. Past Medical History Past Medical History: Chronic Problems Surgical wound dehiscence (Chronic) Wound of abdomen (Chronic) Wound, open, abdominal wall, anterior (Chronic) Lupus (Chronic) Hypertension (Chronic) Seizure disorder (Chronic) Dementia (Chronic) Renal insufficiency (Chronic) Hyperlipidemia (Chronic) Overweight (BMI 25.0-29.9) (Chronic) Hypothyroidism (Chronic) Skin picking habit (Chronic) Compulsive skin picking (Chronic) Surgical History: - - Patient has a history of cholecystectomy, repair of a vaginal fissure, and abdominal surgery in the , the reason for which is not certain. She is a AB 5. Allergies/Adverse Reactions: Allergies Sulfa (Sulfonamide Antibiotics) Allergy (Verified 01/18/18 14:47) Hives Home Medications: Ambulatory Orders Medication Instructions Recorded Acetaminophen [Tylenol Extra 500 mg PO Q6H PRN PRN 01/18/18 Strength] Alprazolam [Xanax] 0.25 mg PO Q6H PRN PRN 01/18/18 Aspirin E.C. [Ecotrin] 81 mg PO DAILY@0800 01/18/18 Calcium Carbonate/Vitamin D3 1 tab PO BID 01/18/18 [Calcium 600-Vit D3 400 Tablet] Cephalexin 500 mg PO TID 01/18/18 Donepezil HCl 10 mg PO DAILY 01/18/18 Ferrous Sulfate 325 mg PO DAILY@0800 01/18/18 Lamotrigine 100 mg PO BID 01/18/18 Levothyroxine Sodium [Levoxyl] 25 mcg PO DAILY 01/18/18 Lisinopril [Zestril] 20 mg PO DAILY 01/18/18 Loratadine 10 mg PO DAILY 01/18/18 Memantine HCl [Namenda Xr] 28 mg PO DAILY 01/18/18 Multivitamin [Multiple Vitamins] 1 each PO DAILY 01/18/18 Omeprazole 40 mg PO DAILY 01/18/18 Potassium Chloride [Klor-Con] 20 meq PO DAILY 01/18/18 Quetiapine Fumarate [Seroquel] 25 mg PO QHS 01/18/18 Sertraline HCl [Zoloft] 100 mg PO DAILY 01/18/18 Simvastatin 20 mg PO DAILY 01/18/18 Sucralfate 1 gm PO TID 01/18/18 - Family History Paternal - - The patient's father in his 50s from black lung disease. He was a corporate claims examiner. Patient's mother at the age of 70, with a history of chronic obstructive pulmonary disease, the result of smoking. Smoking Status: Never smoker Tobacco Use: Non-smoker Alcohol: None Drugs: None Review of Systems Constitutional: Denies: Chills, Fever, Weight Change Eyes: Denies: Pain, Vision Change HEENT: Denies: Difficulty Hearing, Difficulty Swallowing, Sinus Congestion Cardiovascular: Denies: Chest Pain, Palpitations Respiratory: Denies: Cough, Shortness of Breath Gastrointestinal: Denies: Diarrhea, Nausea, Vomiting Genitourinary: Denies: Dysuria, Hematuria Endocrine: Denies: Heat/ Cold Intolerance, Polydipsia, Polyuria Hematologic/ Lymphatic: Denies: Easy Bruising, Easy Bleeding - Physical Exam Vital Signs Temp Pulse Resp BP 98.0 F 70 18 124/61 H 01/25/18 14:34 01/25/18 14:34 01/25/18 14:34 01/25/18 14:34 General: Alert, Oriented x3, Cooperative, No apparent distress, Well developed, Well nourished HEENT: Atraumatic, PERRLA, EOMI, Normocephalic Oral: Moist Mucosa Neck: No JVD Lungs: Normal air movement Abdomen: Bowel Sounds Present, Soft, Non Tender, Non-Distended, Obese, - - The wound is noted at the superior portion of a previous vertical midline incision inferior to the umbilicus. It is very small, and superficial. There is no sign of infection. Dimensions are documented elsewhere. There is minimal bioburden. The base of the wound is pink and healthy. Extremities: No clubbing, No cyanosis, No edema, No Calf Tenderness Skin: No rashes Wound Measurements and Assessment WC - Nurse 1 - General Ulcer Measurement Start: 01/18/18 14:21 Freq: Status: Active Protocol: Activity Type Activity Date Activity User E-Sign Co-Sign Detail Recorded Client Recorded Date Recorded By Document 01/25/18 14:34 BERHANE [id number] 01/25/18 14:43 BERHANE 01/25/18 14:34 Wound Center Nurse 1 [Ulcer Assessment] 1-abdomen -Combined with other wound No -Current Size (cm) - Length 1.2 -Current Size (cm) - Width 0.5 -Current Size (cm) - Depth 0.1 -Total Square Cm 0.60 -Photo Taken No -Epithelialization Small 1-33% -Tunneling No -Undermining/Tunneling No -Circular Undermining No -Exudate Amt Small (1-33%) -Exudate Type Serosanguineous -Wound Margin Flat & Intact -Granulation Amt Medium (34-66%) -Granulation Quality Roxie -Slough/Fibrin Yes -Necrosis Amt Small (1-33%) -Necrotic Tissue Type Adherent Slough -Structure Exposed N/A -Texture (Hazel-wound Skin Appearance) Assessed Localized Edema Scarring -Moisture (Hazel-wound Skin Appearance Assessed ) Dry/Scaly -Color (Hazel-wound Skin Appearance) Assessed -Temperature (Hazel-wound Skin No Abnormality Appearance) (Pt Warm) -Tenderness on Palpation (Hazel-wound No Skin Appearance) -Ulcer Cleansing Rinsed/ Irrigated with Saline -Foul Odor after Cleansing No -Anesthetic Used 4% Lidocaine Solution [Edema Assessment] -Lower Limb Edema Present NA WC - Nurse 2 - General Ulcer CM Notes Start: 01/18/18 14:21 Freq: Status: Active Protocol: Activity Type Activity Date Activity User E-Sign Co-Sign Detail Recorded Client Recorded Date Recorded By Document 01/25/18 15:18 LAURA [id number] 01/25/18 15:27 LAURA 01/25/18 15:18 Wound Center Nurse 2 [Procedure/Treatment] 1-abdomen -Time 15:18 -Correct Patient Yes -Correct Side, Site, Position Yes -Correct Procedure Yes -Procedure Performed Yes -Type of Procedure Debridement -Clinical Debridement Subcutaneous -Post Debridement Size (cm) - Length 1.3 -Post Debridement Size (cm) - Width 0.4 -Post Debridement Size (cm) - Depth 0.1 -Total Square Cm 0.52 -Wound/Ulcer Outcome Not Healed -Ulcer Cleansing Rinsed/ Irrigated with Saline -Foul Odor after Cleansing No -Bioengineered Tissue No -Topical Lidocaine (%) 4 -Lidocaine (ml) 5 -Bleeding Controlled with NA -Treatment Response Procedure Tolerated Well [See Physician Procedure note for Specifics] Pain Scale: 0-10 Numeric [Pain] -Is Patient Pain Free? Yes Neurological: Cranial nerves II-XII grossly intact, Neuro grossly intact Psych/Mental Status: - - The patient suffers from dementia, and others repetitive statements, appearing to exhibit the outward signs of her dementia. Debridement Note Post-Debridement Measurements/Treatment WC - Nurse 2 - General Ulcer CM Notes Start: 01/18/18 14:21 Freq: Status: Active Protocol: Activity Type Activity Date Activity User E-Sign Co-Sign Detail Recorded Client Recorded Date Recorded By Document 01/18/18 16:05 [id number] 01/18/18 16:34 Document 01/25/18 15:18 [id number] 01/25/18 15:27 JS 01/18/18 01/25/18 16:05 15:18 Wound Center Nurse 2 1-abdomen -Time 16:05 15:18 -Correct Patient Yes Yes -Correct Side, Site, Position Yes Yes -Correct Procedure Yes Yes -Procedure Performed Yes Yes -Type of Procedure Debridement Debridement -Clinical Debridement Subcutaneous Subcutaneous -Post Debridement Size (cm) - Length 1.0 1.3 -Post Debridement Size (cm) - Width 0.2 0.4 -Post Debridement Size (cm) - Depth 0.1 0.1 -Total Square Cm 0.20 0.52 -Wound/Ulcer Outcome Not Healed Not Healed -Ulcer Cleansing Rinsed/ Rinsed/ Irrigated with Irrigated with Saline Saline -Foul Odor after Cleansing No No -Bioengineered Tissue No No -Topical Lidocaine (%) 4 4 -Lidocaine (ml) 5 5 -Bleeding Controlled with NA NA -Treatment Response Procedure Procedure Tolerated Well Tolerated Well Pain Scale: 0-10 Numeric Is Patient Pain Free? Yes Yes Laterality: Not Applicable - Midline abdominal incision Type of Debridement: Excisional debridement Anesthesia Used: 4% Lidocaine Solution Depth: Down to and including healthy tissue, in the subcutaneous layer Percentage of wound debrided: 100 Instrument Used: 3mm curette Severity: Fat Layer Exposed Amount of bleeding with debridement: Mild Bleeding Controlled with: Compression and gauze Patient tolerated procedure well Assessment/Plan Active Problems Surgical wound dehiscence (Chronic) Wound of abdomen (Chronic) Wound, open, abdominal wall, anterior (Chronic) Skin picking habit (Chronic) Compulsive skin picking (Chronic) Assessment: This is a 72-year-old female who underwent an abdominal surgical procedure in the , though the nature of the surgery is unknown. The procedure was performed by means of an infraumbilical vertical midline incision. The patient presented with a small dehiscence at the surgical incision site, which had been present for approximately 6 weeks. It is known that the patient tends to be habitual parts picker of her skin. In fact, the patient' s presenting abdominal wound may be related to her habitual picking tendency. Based upon physical examination, the wound is superficial, and does not appear to extend into the deeper layers. The battery of diagnostic laboratory tests has been obtained, with results as follows: White blood count 6.0, hemoglobin 13.0, hematocrit 40.8, platelets 274,000, glucose 105, BUN 10 creatinine 0.78, total protein 7.3, albumin 3.7, calcium 8.8, AST 16, alkaline phosphatase 66, ALT 21, total bilirubin 0.10, sodium 142, potassium 3.8, chloride 108, prealbumin 29.0. Plan: Adequate nutrition has been encouraged. We are to implement the use of collagen hydrogel topically, applied every other day. An occlusive drape will then be applied. Gauze will be placed over top, and secured in place, in an effort to prevent the patient from access with her fingers, as she is a habitual parts picker. It is learned that the original dressing placed last week, lasted only 2 days, presumably due to removal by the patient herself. We are to contact assisted living nursing personnel, to emphasize that efforts should be implemented to prevent patient from removing her dressings, and picking or scratching at her wound. The small size and superficial nature of the patient' s wound suggests that healing should be likely in a short period of time. Patient will return in 2 weeks for reassessment, as she has transportation issues next week, and will be unable to return next week. Influenza vaccine was not administered. The patient is not a smoker. The patient stands 5 feet 1 inch tall. She weighs 154 pounds. Her BMI is 29.1. This places the patient in the overweight category. Weight loss has been recommended, and collaboration with the patient's primary care physician has been suggested.
== END 2018-01-25 23:59 ==
LOC: WC 14:30
PROVIDERS: Family Provider Family Medicine; PCP Family Medicine; Visit Provider Surgery
DX: T81.30XA Disruption of wound, unspecified, initial encounter (principal); Y83.8 Other surgical procedures as the cause of abnormal reaction of the patient, or of later complication, without mention of misadventure at the time of the procedure; L93.0 Discoid lupus erythematosus; G40.909 Epilepsy, unspecified, not intractable, without status epilepticus; I10 Essential (primary) hypertension; E78.5 Hyperlipidemia, unspecified; F03.90 Unspecified dementia, unspecified severity, without behavioral disturbance, psychotic disturbance, mood disturbance, and anxiety; E03.9 Hypothyroidism, unspecified; F42.4 Excoriation (skin-picking) disorder; Z79.899 Other long term (current) drug therapy; Z79.82 Long term (current) use of aspirin
CPT/HCPCS: 11042; 36415; 80053; 84134; 85027; 99203; G0463

== ENCOUNTER 2018-02-15 15:00 | Outpatient (RCR) | payer MEDICARE, MEDICAID, SELFPAY ==
[2018-01-26 01:15] VITALS: PULSE 70; RESP 18; TEMP 36.7
[2018-02-08 15:26] VITALS: BP 111/59; PULSE 70; RESP 16; TEMP 37
--- NOTE | 2018-02-08 16:24 | PCM.WC.HP ---
(1) Surgical wound dehiscence Status: Chronic Current Visit: Yes Qualifiers: Encounter type: subsequent encounter Code(s): T81.31XA - Disruption of external operation (surgical) wound, not elsewhere classified, initial encounter (2) Wound of abdomen Status: Chronic Current Visit: Yes Code(s): S31.109A - Unspecified open wound of abdominal wall, unspecified quadrant without penetration into peritoneal cavity, initial encounter (3) Wound, open, abdominal wall, anterior Status: Chronic Current Visit: Yes Qualifiers: Encounter type: subsequent encounter Code(s): S31.109A - Unspecified open wound of abdominal wall, unspecified quadrant without penetration into peritoneal cavity, initial encounter (4) Lupus Status: Chronic Current Visit: No Code(s): L93.0 - Discoid lupus erythematosus (5) Hypertension Status: Chronic Current Visit: No Code(s): I10 - Essential (primary) hypertension (6) Seizure disorder Status: Chronic Current Visit: No Code(s): G40.909 - Epilepsy, unspecified, not intractable, without status epilepticus (7) Dementia Status: Chronic Current Visit: No Code(s): F03.90 - Unspecified dementia without behavioral disturbance (8) Renal insufficiency Status: Chronic Current Visit: No Code(s): N28.9 - Disorder of kidney and ureter, unspecified (9) Hyperlipidemia Status: Chronic Current Visit: No Code(s): E78.5 - Hyperlipidemia, unspecified (10) Overweight (BMI 25.0-29.9) Status: Chronic Current Visit: No Code(s): E66.3 - Overweight (11) Hypothyroidism Status: Chronic Current Visit: No Code(s): E03.9 - Hypothyroidism, unspecified (12) Skin picking habit Status: Chronic Current Visit: No Code(s): F42.4 - Excoriation (skin-picking) disorder (13) Compulsive skin picking Status: Chronic Current Visit: No Code(s): 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 The wound had been present for approximately 6 weeks. The patient has been treated by her primary care physician, having received a 10 day course of Keflex, a shot of Rocephin, and the use of Bactroban topically. There is uncertainty as to the surgical procedure which was performed in the . The patient resides in an assisted living facility, and suffers from dementia, as well as other multiple medical problems. Past Medical History Past Medical History: Chronic Problems Surgical wound dehiscence (Chronic) Wound of abdomen (Chronic) Wound, open, abdominal wall, anterior (Chronic) Lupus (Chronic) Hypertension (Chronic) Seizure disorder (Chronic) Dementia (Chronic) Renal insufficiency (Chronic) Hyperlipidemia (Chronic) Overweight (BMI 25.0-29.9) (Chronic) Hypothyroidism (Chronic) Skin picking habit (Chronic) Compulsive skin picking (Chronic) Surgical History: - - Patient has a history of cholecystectomy, repair of a vaginal fissure, and abdominal surgery in the , the reason for which is not certain. She is a AB 5. Allergies/Adverse Reactions: Allergies Sulfa (Sulfonamide Antibiotics) Allergy (Verified 01/18/18 14:47) Hives Home Medications: Ambulatory Orders Medication Instructions Recorded Acetaminophen [Tylenol Extra 500 mg PO Q6H PRN PRN 01/18/18 Strength] Alprazolam [Xanax] 0.25 mg PO Q6H PRN PRN 01/18/18 Aspirin E.C. [Ecotrin] 81 mg PO DAILY@0800 01/18/18 Calcium Carbonate/Vitamin D3 1 tab PO BID 01/18/18 [Calcium 600-Vit D3 400 Tablet] Cephalexin 500 mg PO TID 01/18/18 Donepezil HCl 10 mg PO DAILY 01/18/18 Ferrous Sulfate 325 mg PO DAILY@0800 01/18/18 Lamotrigine 100 mg PO BID 01/18/18 Levothyroxine Sodium [Levoxyl] 25 mcg PO DAILY 01/18/18 Lisinopril [Zestril] 20 mg PO DAILY 01/18/18 Loratadine 10 mg PO DAILY 01/18/18 Memantine HCl [Namenda Xr] 28 mg PO DAILY 01/18/18 Multivitamin [Multiple Vitamins] 1 each PO DAILY 01/18/18 Omeprazole 40 mg PO DAILY 01/18/18 Potassium Chloride [Klor-Con] 20 meq PO DAILY 01/18/18 Quetiapine Fumarate [Seroquel] 25 mg PO QHS 01/18/18 Sertraline HCl [Zoloft] 100 mg PO DAILY 01/18/18 Simvastatin 20 mg PO DAILY 01/18/18 Sucralfate 1 gm PO TID 01/18/18 - Family History Paternal - - The patient's father in his 50s from black lung disease. He was a controller coal or ore. Patient's mother at the age of 70, with a history of chronic obstructive pulmonary disease, the result of smoking. Smoking Status: Never smoker Tobacco Use: Non-smoker Review of Systems Constitutional: Denies: Chills, Fever, Weight Change Eyes: Denies: Pain, Vision Change HEENT: Denies: Difficulty Hearing, Difficulty Swallowing, Sinus Congestion Cardiovascular: Denies: Chest Pain, Palpitations Respiratory: Denies: Cough, Shortness of Breath Gastrointestinal: Denies: Diarrhea, Nausea, Vomiting Genitourinary: Denies: Dysuria, Hematuria Endocrine: Denies: Heat/ Cold Intolerance, Polydipsia, Polyuria Hematologic/ Lymphatic: Denies: Easy Bruising, Easy Bleeding - Physical Exam Vital Signs Temp Pulse Resp BP 98.6 F 70 16 111/59 L 02/08/18 15:26 02/08/18 15:26 02/08/18 15:26 02/08/18 15:26 General: Alert, Oriented x3, Cooperative, No apparent distress, Well developed, Well nourished HEENT: Atraumatic, PERRLA, EOMI, Normocephalic Oral: Moist Mucosa Neck: No JVD Lungs: Normal air movement Abdomen: Soft, Non Tender, Non-Distended, - - The abdominal wound is smaller in size, and much improved. It remains superficial. There is no sign of infection or cellulitis. Dimensions are documented elsewhere. There is a moderate amount of bioburden. Extremities: No clubbing, No cyanosis, No edema, No Calf Tenderness Skin: No rashes Wound Measurements and Assessment WC - Nurse 1 - General Ulcer Measurement Start: 02/08/18 14:48 Freq: Status: Active Protocol: Activity Type Activity Date Activity User E-Sign Co-Sign Detail Recorded Client Recorded Date Recorded By Document 02/08/18 15:26 DV [id number] 02/08/18 15:34 DV 02/08/18 15:26 Wound Center Nurse 1 [Ulcer Assessment] 1-abdomen -Combined with other wound No -Current Size (cm) - Length 1.3 -Current Size (cm) - Width 0.2 -Current Size (cm) - Depth 0.1 -Total Square Cm 0.26 -Photo Taken No -Epithelialization None Present -Tunneling No -Undermining/Tunneling No -Circular Undermining No -Classification - Thickness Full Thickness without Exposed Support Structure -Exudate Amt None Present (0 %) -Wound Margin Indistinct, Non -Visible -Granulation Amt None Present (0 %) -Granulation Quality N/A -Slough/Fibrin No -Necrosis Amt Small (1-33%) -Necrotic Tissue Type Adherent Slough -Structure Exposed N/A None/Limited to Skin Breakdown -Texture (Hazel-wound Skin Appearance) Assessed Scarring -Moisture (Hazel-wound Skin Appearance No Abnormality ) Assessed -Color (Hazel-wound Skin Appearance) No Abnormality Assessed -Temperature (Hazel-wound Skin No Abnormality Appearance) (Pt Warm) -Tenderness on Palpation (Hazel-wound No Skin Appearance) -Foul Odor after Cleansing No -Anesthetic Used 5% Lidocaine Gel Neurological: Cranial nerves II-XII grossly intact, Neuro grossly intact Psych/Mental Status: Normal Affect, Appropriate, Alert and oriented to time, place, person, mood and affect Debridement Note Laterality: Not Applicable - Abdominal midline Type of Debridement: Excisional debridement Anesthesia Used: 4% Lidocaine Solution Depth: Down to and including healthy tissue, in the subcutaneous layer Percentage of wound debrided: 100 Instrument Used: 5mm curette Severity: Fat Layer Exposed Amount of bleeding with debridement: Mild Bleeding Controlled with: Compression and gauze Assessment/Plan Active Problems Surgical wound dehiscence (Chronic) Wound of abdomen (Chronic) Wound, open, abdominal wall, anterior (Chronic) Assessment: This is a 72-year-old female who underwent an abdominal surgical procedure in the , though the nature of the surgery is unknown. The procedure was performed by means of an infraumbilical vertical midline incision. The patient presented with a small dehiscence at the surgical incision site, which had been present for approximately 6 weeks. It is known that the patient tends to be habitual chart picker of her skin. In fact, the patient's presenting abdominal wound may be related to her habitual picking tendency. Based upon physical examination, the wound is superficial, and does not appear to extend into the deeper layers. The battery of diagnostic laboratory tests has been obtained, with results as follows: White blood count 6.0, hemoglobin 13.0, hematocrit 40.8, platelets 274,000, glucose 105, BUN 10 creatinine 0.78, total protein 7.3, albumin 3.7, calcium 8.8, AST 16, alkaline phosphatase 66, ALT 21, total bilirubin 0.10, sodium 142, potassium 3.8, chloride 108, prealbumin 29.0. Plan: Adequate nutrition has been encouraged. We are to continue the use of collagen hydrogel topically, applied every other day. An occlusive drape will then be applied. Gauze will be placed over top, and secured in place, in an effort to prevent the patient from access with her fingers, as she is a habitual chart picker. We are to contact assisted living nursing personnel, to emphasize that efforts should be implemented to prevent patient from removing her dressings, and picking or scratching at her wound. The small size and superficial nature of the patient's wound suggests that healing should be likely in a short period of time. Patient will return in 1 week for reassessment. Influenza vaccine was not administered. The patient is not a smoker. The patient stands 5 feet 1 inch tall. She weighs 154 pounds. Her BMI is 29.1. This places the patient in the overweight category. Weight loss has been recommended, and collaboration with the patient's primary care physician has been suggested.
[2018-02-15 14:56] VITALS: BP 131/72; PULSE 79; RESP 16; TEMP 36.2
--- NOTE | 2018-02-16 10:16 | PN_ITS ---
DATE OF SERVICE: 02/15/2018 This is a 72-year-old female who underwent an abdominal surgical procedure in the . She recently presented with a small dehiscence at the surgical incision site, which had been present for approximately 6 weeks. The patient has a tendency to pick at her scabs. We have made efforts to diminish this tendency. We are currently using Hydrogel topically, covered by Adaptic and Op-Site. The patient presents today where it is noted that the patient's surgical dehiscent wound is little changed in size or appearance. It is superficial. There is no sign of infection or cellulitis. To its right, and to the right of the midline, is an accessory or satellite wound, thought to be secondary to a tape abrasion. The dimensions of each of the 2 wounds are documented elsewhere. Neither shows any sign of cellulitis or infection. Debridement of each of the 2 sites has been performed today. Initially, lidocaine 4% gel was applied topically to provide an adequate level of topical analgesia. A sterile 5-mm curette was then used to perform debridement, removing a moderate amount of bioburden and nonviable tissue. A moderate amount of bleeding was encountered, which was easily controlled with manual pressure. The patient tolerated the procedure well. The debridement was excisional in nature. We are to continue the use of Hydrogel topically, as well as Adaptic and Op-Site. The patient has once again been admonished to refrain from scratching or picking at her wounds. The patient will return in 2 weeks for reassessment, as next week is a national holiday. The patient is not a smoker. Influenza vaccine was not administered today. The patient stands 5 feet 1 inch tall. She weighs 154 pounds. Her BMI is 29.1, which places the patient in the overweight category. Weight loss has been recommended, and collaboration has been advised with the patient's primary care physician. Enrique Montano MD T: [facility] JOB: [id number]
== END 2018-02-25 23:59 ==
LOC: WC 15:00
PROVIDERS: Family Provider Family Medicine; PCP Family Medicine; Visit Provider Surgery
DX: T81.31XA Disruption of external operation (surgical) wound, not elsewhere classified, initial encounter (principal); S31.109A Unspecified open wound of abdominal wall, unspecified quadrant without penetration into peritoneal cavity, initial encounter; L93.0 Discoid lupus erythematosus; I10 Essential (primary) hypertension; G40.909 Epilepsy, unspecified, not intractable, without status epilepticus; F03.90 Unspecified dementia, unspecified severity, without behavioral disturbance, psychotic disturbance, mood disturbance, and anxiety; N28.9 Disorder of kidney and ureter, unspecified; E78.5 Hyperlipidemia, unspecified; E66.3 Overweight; E03.9 Hypothyroidism, unspecified; F42.4 Excoriation (skin-picking) disorder; Z90.49 Acquired absence of other specified parts of digestive tract; Z68.29 Body mass index [BMI] 29.0-29.9, adult; Z79.82 Long term (current) use of aspirin
CPT/HCPCS: 11042

== ENCOUNTER 2018-03-22 15:19 | Outpatient (RCR) | payer MEDICARE, MEDICAID, SELFPAY ==
[2018-02-26 01:02] VITALS: BP 131/72; PULSE 79; RESP 16; TEMP 36.2
[2018-03-22 15:44] VITALS: BP 124/64; PULSE 78; RESP 18; TEMP 36.6
--- NOTE | 2018-03-22 17:45 | PCM.WC.HP ---
(1) Surgical wound dehiscence Status: Chronic Current Visit: Yes Qualifiers: Encounter type: subsequent encounter Code(s): T81.31XA - Disruption of external operation (surgical) wound, not elsewhere classified, initial encounter (2) Wound of abdomen Status: Chronic Current Visit: Yes Code(s): S31.109A - Unspecified open wound of abdominal wall, unspecified quadrant without penetration into peritoneal cavity, initial encounter (3) Wound, open, abdominal wall, anterior Status: Chronic Current Visit: Yes Qualifiers: Encounter type: subsequent encounter Code(s): S31.109A - Unspecified open wound of abdominal wall, unspecified quadrant without penetration into peritoneal cavity, initial encounter (4) Lupus Status: Chronic Current Visit: No Code(s): L93.0 - Discoid lupus erythematosus (5) Hypertension Status: Chronic Current Visit: No Code(s): I10 - Essential (primary) hypertension (6) Seizure disorder Status: Chronic Current Visit: No Code(s): G40.909 - Epilepsy, unspecified, not intractable, without status epilepticus (7) Dementia Status: Chronic Current Visit: No Code(s): F03.90 - Unspecified dementia without behavioral disturbance (8) Renal insufficiency Status: Chronic Current Visit: No Code(s): N28.9 - Disorder of kidney and ureter, unspecified (9) Hyperlipidemia Status: Chronic Current Visit: No Code(s): E78.5 - Hyperlipidemia, unspecified (10) Overweight (BMI 25.0-29.9) Status: Chronic Current Visit: No Code(s): E66.3 - Overweight (11) Hypothyroidism Status: Chronic Current Visit: No Code(s): E03.9 - Hypothyroidism, unspecified (12) Skin picking habit Status: Chronic Current Visit: No Code(s): F42.4 - Excoriation (skin-picking) disorder (13) Compulsive skin picking Status: Chronic Current Visit: No Code(s): 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 The wound had been present for approximately 6 weeks. The patient has been treated by her primary care physician, having received a 10 day course of Keflex, a shot of Rocephin, and the use of Bactroban topically. There is uncertainty as to the surgical procedure which was performed in the . The patient resides in an assisted living facility, and suffers from dementia, as well as other multiple medical problems. Past Medical History Past Medical History: Chronic Problems Surgical wound dehiscence (Chronic) Wound of abdomen (Chronic) Wound, open, abdominal wall, anterior (Chronic) Lupus (Chronic) Hypertension (Chronic) Seizure disorder (Chronic) Dementia (Chronic) Renal insufficiency (Chronic) Hyperlipidemia (Chronic) Overweight (BMI 25.0-29.9) (Chronic) Hypothyroidism (Chronic) Skin picking habit (Chronic) Compulsive skin picking (Chronic) Surgical History: - - Patient has a history of cholecystectomy, repair of a vaginal fissure, and abdominal surgery in the , the reason for which is not certain. She is a AB 5. Allergies/Adverse Reactions: Allergies Sulfa (Sulfonamide Antibiotics) Allergy (Verified 01/18/18 14:47) Hives Home Medications: Ambulatory Orders Medication Instructions Recorded Acetaminophen [Tylenol Extra 500 mg PO Q6H PRN PRN 01/18/18 Strength] Alprazolam [Xanax] 0.25 mg PO Q6H PRN PRN 01/18/18 Aspirin E.C. [Ecotrin] 81 mg PO DAILY@0800 01/18/18 Calcium Carbonate/Vitamin D3 1 tab PO BID 01/18/18 [Calcium 600-Vit D3 400 Tablet] Cephalexin 500 mg PO TID 01/18/18 Donepezil HCl 10 mg PO DAILY 01/18/18 Ferrous Sulfate 325 mg PO DAILY@0800 01/18/18 Lamotrigine 100 mg PO BID 01/18/18 Levothyroxine Sodium [Levoxyl] 25 mcg PO DAILY 01/18/18 Lisinopril [Zestril] 20 mg PO DAILY 01/18/18 Loratadine 10 mg PO DAILY 01/18/18 Memantine HCl [Namenda Xr] 28 mg PO DAILY 01/18/18 Multivitamin [Multiple Vitamins] 1 each PO DAILY 01/18/18 Omeprazole 40 mg PO DAILY 01/18/18 Potassium Chloride [Klor-Con] 20 meq PO DAILY 01/18/18 Quetiapine Fumarate [Seroquel] 25 mg PO QHS 01/18/18 Sertraline HCl [Zoloft] 100 mg PO DAILY 01/18/18 Simvastatin 20 mg PO DAILY 01/18/18 Sucralfate 1 gm PO TID 01/18/18 - Family History Paternal - - The patient's father in his 50s from black lung disease. He was a coal briquette machine operator. Patient's mother at the age of 70, with a history of chronic obstructive pulmonary disease, the result of smoking. Smoking Status: Never smoker Tobacco Use: Non-smoker Review of Systems Constitutional: Denies: Chills, Fever, Weight Change Eyes: Denies: Pain, Vision Change HEENT: Denies: Difficulty Hearing, Difficulty Swallowing, Sinus Congestion Cardiovascular: Denies: Chest Pain, Palpitations Respiratory: Denies: Cough, Shortness of Breath Gastrointestinal: Denies: Diarrhea, Nausea, Vomiting Genitourinary: Denies: Dysuria, Hematuria Endocrine: Denies: Heat/ Cold Intolerance, Polydipsia, Polyuria Hematologic/ Lymphatic: Denies: Easy Bruising, Easy Bleeding - Physical Exam Vital Signs Temp Pulse Resp BP 97.8 F 78 18 124/64 H 03/22/18 15:44 03/22/18 15:44 03/22/18 15:44 03/22/18 15:44 General: Alert, Oriented x3, Cooperative, No apparent distress, Well developed, Well nourished HEENT: Atraumatic, PERRLA, EOMI, Normocephalic Oral: Moist Mucosa Neck: No JVD Lungs: Normal air movement Abdomen: Bowel Sounds Present, Soft, Non Tender, Non-Distended, - - The dehiscent surgical abdominal wound is now completely healed and epithelialized. There is no sign of infection or cellulitis. Extremities: No clubbing, No cyanosis, No edema, No Calf Tenderness Wound Measurements and Assessment WC - Nurse 1 - General Ulcer Measurement Start: 03/22/18 15:38 Freq: Status: Active Protocol: Activity Type Activity Date Activity User E-Sign Co-Sign Detail Recorded Client Recorded Date Recorded By Document 03/22/18 15:44 DL [id number] 03/22/18 15:50 DL 03/22/18 15:44 Wound Center Nurse 1 [Ulcer Assessment] 1-abdomen -Current Size (cm) - Length 0 -Current Size (cm) - Width 0 -Current Size (cm) - Depth 0 -Total Square Cm 0 -Photo Taken Yes -Exudate Amt None Present (0 %) -Wound Margin Flat & Intact -Granulation Amt Large (67-100%) -Granulation Quality [place] -Necrosis Amt None Present (0 %) -Structure Exposed N/A -Texture (Hazel-wound Skin Appearance) Scarring -Moisture (Hazel-wound Skin Appearance No Abnormality ) -Color (Hazel-wound Skin Appearance) No Abnormality -Temperature (Hazel-wound Skin No Abnormality Appearance) (Pt Warm) -Ulcer Cleansing Rinsed/ Irrigated with Saline -Foul Odor after Cleansing No WC - Nurse 2 - General Ulcer CM Notes Start: 03/22/18 15:38 Freq: Status: Active Protocol: Activity Type Activity Date Activity User E-Sign Co-Sign Detail Recorded Client Recorded Date Recorded By Document 03/22/18 16:47 [id number] 03/22/18 16:48 03/22/18 16:47 Wound Center Nurse 2 [Procedure/Treatment] -Time 16:47 -Correct Patient Yes -Correct Side, Site, Position Yes -Procedure Performed No -Post Debridement Size (cm) - Length 0 -Post Debridement Size (cm) - Width 0 -Post Debridement Size (cm) - Depth 0 -Total Square Cm 0 -Wound/Ulcer Outcome Healed- Epithelialized [See Physician Procedure note for Specifics] Pain Scale: 0-10 Numeric [Pain] -Is Patient Pain Free? Yes Neurological: Cranial nerves II-XII grossly intact, Neuro grossly intact Psych/Mental Status: Normal Affect, Appropriate, - - The patient appears slightly confused. Debridement Note Post-Debridement Measurements/Treatment WC - Nurse 2 - General Ulcer CM Notes Start: 03/22/18 15:38 Freq: Status: Active Protocol: Activity Type Activity Date Activity User E-Sign Co-Sign Detail Recorded Client Recorded Date Recorded By Document 03/22/18 16:47 [id number] 03/22/18 16:48 03/22/18 16:47 Wound Center Nurse 2 1-abdomen -Time 16:47 -Correct Patient Yes -Correct Side, Site, Position Yes -Procedure Performed No -Post Debridement Size (cm) - Length 0 -Post Debridement Size (cm) - Width 0 -Post Debridement Size (cm) - Depth 0 -Total Square Cm 0 -Wound/Ulcer Outcome Healed- Epithelialized Pain Scale: 0-10 Numeric Is Patient Pain Free? Yes No debridement was completed today Assessment/Plan Active Problems Surgical wound dehiscence (Chronic) Wound of abdomen (Chronic) Wound, open, abdominal wall, anterior (Chronic) Assessment: This is a 72-year-old female who underwent an abdominal surgical procedure in the , though the nature of the surgery is unknown. The procedure was performed by means of an infraumbilical vertical midline incision. The patient presented with a small dehiscence at the surgical incision site, which had been present for approximately 6 weeks. It is known that the patient tends to be habitual molded goods spot picker of her skin. In fact, the patient's presenting abdominal wound may be related to her habitual picking tendency. Based upon physical examination, the wound is superficial, and does not appear to extend into the deeper layers. This juncture, the wound appears completely healed and epithelialized. The battery of diagnostic laboratory tests has been obtained, with results as follows: White blood count 6.0, hemoglobin 13.0, hematocrit 40.8, platelets 274,000, glucose 105, BUN 10 creatinine 0.78, total protein 7.3, albumin 3.7, calcium 8.8, AST 16, alkaline phosphatase 66, ALT 21, total bilirubin 0.10, sodium 142, potassium 3.8, chloride 108, prealbumin 29.0. Plan: The patient is completely healed and epithelialized. Patient is to be discharged, and will follow-up henceforth on an as needed basis. Influenza vaccine was not administered. The patient is not a smoker. The patient stands 5 feet 1 inch tall. She weighs 154 pounds. Her BMI is 29.1. This places the patient in the overweight category. Weight loss has been recommended, and collaboration with the patient's primary care physician has been suggested.
--- NOTE | 2018-03-22 17:51 | HP.PCM_ITS ---
(1) Surgical wound dehiscence Status: Chronic Current Visit: Yes Qualifiers: Encounter type: subsequent encounter Code(s): T81.31XA - Disruption of external operation (surgical) wound, not elsewhere classified, initial encounter (2) Wound of abdomen Status: Chronic Current Visit: Yes Code(s): S31.109A - Unspecified open wound of abdominal wall, unspecified quadrant without penetration into peritoneal cavity, initial encounter (3) Wound, open, abdominal wall, anterior Status: Chronic Current Visit: Yes Qualifiers: Encounter type: subsequent encounter Code(s): S31.109A - Unspecified open wound of abdominal wall, unspecified quadrant without penetration into peritoneal cavity, initial encounter (4) Lupus Status: Chronic Current Visit: No Code(s): L93.0 - Discoid lupus erythematosus (5) Hypertension Status: Chronic Current Visit: No Code(s): I10 - Essential (primary) hypertension (6) Seizure disorder Status: Chronic Current Visit: No Code(s): G40.909 - Epilepsy, unspecified, not intractable, without status epilepticus (7) Dementia Status: Chronic Current Visit: No Code(s): F03.90 - Unspecified dementia without behavioral disturbance (8) Renal insufficiency Status: Chronic Current Visit: No Code(s): N28.9 - Disorder of kidney and ureter, unspecified (9) Hyperlipidemia Status: Chronic Current Visit: No Code(s): E78.5 - Hyperlipidemia, unspecified (10) Overweight (BMI 25.0-29.9) Status: Chronic Current Visit: No Code(s): E66.3 - Overweight (11) Hypothyroidism Status: Chronic Current Visit: No Code(s): E03.9 - Hypothyroidism, unspecified (12) Skin picking habit Status: Chronic Current Visit: No Code(s): F42.4 - Excoriation (skin-picking ) disorder (13) Compulsive skin picking Status: Chronic Current Visit: No Code(s): 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 The wound had been present for approximately 6 weeks. The patient has been treated by her primary care physician, having received a 10 day course of Keflex, a shot of Rocephin, and the use of Bactroban topically. There is uncertainty as to the surgical procedure which was performed in the . The patient resides in an assisted living facility, and suffers from dementia, as well as other multiple medical problems. Past Medical History Past Medical History: Chronic Problems Surgical wound dehiscence (Chronic) Wound of abdomen (Chronic) Wound, open, abdominal wall, anterior (Chronic) Lupus (Chronic) Hypertension (Chronic) Seizure disorder (Chronic) Dementia (Chronic) Renal insufficiency (Chronic) Hyperlipidemia (Chronic) Overweight (BMI 25.0-29.9) (Chronic) Hypothyroidism (Chronic) Skin picking habit (Chronic) Compulsive skin picking (Chronic) Surgical History: - - Patient has a history of cholecystectomy, repair of a vaginal fissure, and abdominal surgery in the , the reason for which is not certain. She is a AB 5. Allergies/Adverse Reactions: Allergies Sulfa (Sulfonamide Antibiotics) Allergy (Verified 01/18/18 14:47) Hives Home Medications: Ambulatory Orders Medication Instructions Recorded Acetaminophen [Tylenol Extra 500 mg PO Q6H PRN PRN 01/18/18 Strength] Alprazolam [Xanax] 0.25 mg PO Q6H PRN PRN 01/18/18 Aspirin E.C. [Ecotrin] 81 mg PO DAILY@0800 01/18/18 Calcium Carbonate/Vitamin D3 1 tab PO BID 01/18/18 [Calcium 600-Vit D3 400 Tablet] Cephalexin 500 mg PO TID 01/18/18 Donepezil HCl 10 mg PO DAILY 01/18/18 Ferrous Sulfate 325 mg PO DAILY@0800 01/18/18 Lamotrigine 100 mg PO BID 01/18/18 Levothyroxine Sodium [Levoxyl] 25 mcg PO DAILY 01/18/18 Lisinopril [Zestril] 20 mg PO DAILY 01/18/18 Loratadine 10 mg PO DAILY 01/18/18 Memantine HCl [Namenda Xr] 28 mg PO DAILY 01/18/18 Multivitamin [Multiple Vitamins] 1 each PO DAILY 01/18/18 Omeprazole 40 mg PO DAILY 01/18/18 Potassium Chloride [Klor-Con] 20 meq PO DAILY 01/18/18 Quetiapine Fumarate [Seroquel] 25 mg PO QHS 01/18/18 Sertraline HCl [Zoloft] 100 mg PO DAILY 01/18/18 Simvastatin 20 mg PO DAILY 01/18/18 Sucralfate 1 gm PO TID 01/18/18 - Family History Paternal - - The patient's father in his 50s from black lung disease. He was a appeals examiner. Patient's mother at the age of 70, with a history of chronic obstructive pulmonary disease, the result of smoking. Smoking Status: Never smoker Tobacco Use: Non-smoker Review of Systems Constitutional: Denies: Chills, Fever, Weight Change Eyes: Denies: Pain, Vision Change HEENT: Denies: Difficulty Hearing, Difficulty Swallowing, Sinus Congestion Cardiovascular: Denies: Chest Pain, Palpitations Respiratory: Denies: Cough, Shortness of Breath Gastrointestinal: Denies: Diarrhea, Nausea, Vomiting Genitourinary: Denies: Dysuria, Hematuria Endocrine: Denies: Heat/ Cold Intolerance, Polydipsia, Polyuria Hematologic/ Lymphatic: Denies: Easy Bruising, Easy Bleeding - Physical Exam Vital Signs Temp Pulse Resp BP 97.8 F 78 18 124/64 H 03/22/18 15:44 03/22/18 15:44 03/22/18 15:44 03/22/18 15:44 General: Alert, Oriented x3, Cooperative, No apparent distress, Well developed, Well nourished HEENT: Atraumatic, PERRLA, EOMI, Normocephalic Oral: Moist Mucosa Neck: No JVD Lungs: Normal air movement Abdomen: Bowel Sounds Present, Soft, Non Tender, Non-Distended, - - The dehiscent surgical abdominal wound is now completely healed and epithelialized. There is no sign of infection or cellulitis. Extremities: No clubbing, No cyanosis, No edema, No Calf Tenderness Wound Measurements and Assessment WC - Nurse 1 - General Ulcer Measurement Start: 03/22/18 15:38 Freq: Status: Active Protocol: Activity Type Activity Date Activity User E-Sign Co-Sign Detail Recorded Client Recorded Date Recorded By Document 03/22/18 15:44 DL [id number] 03/22/18 15:50 DL 03/22/18 15:44 Wound Center Nurse 1 [Ulcer Assessment] 1-abdomen -Current Size (cm) - Length 0 -Current Size (cm) - Width 0 -Current Size (cm) - Depth 0 -Total Square Cm 0 -Photo Taken Yes -Exudate Amt None Present (0 %) -Wound Margin Flat & Intact -Granulation Amt Large (67-100%) -Granulation Quality [place] -Necrosis Amt None Present (0 %) -Structure Exposed N/A -Texture (Hazel-wound Skin Appearance) Scarring -Moisture (Hazel-wound Skin Appearance No Abnormality ) -Color (Hazel-wound Skin Appearance) No Abnormality -Temperature (Hazel-wound Skin No Abnormality Appearance) (Pt Warm) -Ulcer Cleansing Rinsed/ Irrigated with Saline -Foul Odor after Cleansing No WC - Nurse 2 - General Ulcer CM Notes Start: 03/22/18 15:38 Freq: Status: Active Protocol: Activity Type Activity Date Activity User E-Sign Co-Sign Detail Recorded Client Recorded Date Recorded By Document 03/22/18 16:47 [id number] 03/22/18 16:48 03/22/18 16:47 Wound Center Nurse 2 [Procedure/Treatment] -Time 16:47 -Correct Patient Yes -Correct Side, Site, Position Yes -Procedure Performed No -Post Debridement Size (cm) - Length 0 -Post Debridement Size (cm) - Width 0 -Post Debridement Size (cm) - Depth 0 -Total Square Cm 0 -Wound/Ulcer Outcome Healed- Epithelialized [See Physician Procedure note for Specifics] Pain Scale: 0-10 Numeric [Pain] -Is Patient Pain Free? Yes Neurological: Cranial nerves II-XII grossly intact, Neuro grossly intact Psych/Mental Status: Normal Affect, Appropriate, - - The patient appears slightly confused. Debridement Note Post-Debridement Measurements/Treatment WC - Nurse 2 - General Ulcer CM Notes Start: 03/22/18 15:38 Freq: Status: Active Protocol: Activity Type Activity Date Activity User E-Sign Co-Sign Detail Recorded Client Recorded Date Recorded By Document 03/22/18 16:47 [id number] 03/22/18 16:48 03/22/18 16:47 Wound Center Nurse 2 1-abdomen -Time 16:47 -Correct Patient Yes -Correct Side, Site, Position Yes -Procedure Performed No -Post Debridement Size (cm) - Length 0 -Post Debridement Size (cm) - Width 0 -Post Debridement Size (cm) - Depth 0 -Total Square Cm 0 -Wound/Ulcer Outcome Healed- Epithelialized Pain Scale: 0-10 Numeric Is Patient Pain Free? Yes No debridement was completed today Assessment/Plan Active Problems Surgical wound dehiscence (Chronic) Wound of abdomen (Chronic) Wound, open, abdominal wall, anterior (Chronic) Assessment: This is a 72-year-old female who underwent an abdominal surgical procedure in the , though the nature of the surgery is unknown. The procedure was performed by means of an infraumbilical vertical midline incision. The patient presented with a small dehiscence at the surgical incision site, which had been present for approximately 6 weeks. It is known that the patient tends to be habitual poultry picker of her skin. In fact, the patient' s presenting abdominal wound may be related to her habitual picking tendency. Based upon physical examination, the wound is superficial, and does not appear to extend into the deeper layers. This juncture, the wound appears completely healed and epithelialized. The battery of diagnostic laboratory tests has been obtained, with results as follows: White blood count 6.0, hemoglobin 13.0, hematocrit 40.8, platelets 274,000, glucose 105, BUN 10 creatinine 0.78, total protein 7.3, albumin 3.7, calcium 8.8, AST 16, alkaline phosphatase 66, ALT 21, total bilirubin 0.10, sodium 142, potassium 3.8, chloride 108, prealbumin 29.0. Plan: The patient is completely healed and epithelialized. Patient is to be discharged, and will follow-up henceforth on an as needed basis. Influenza vaccine was not administered. The patient is not a smoker. The patient stands 5 feet 1 inch tall. She weighs 154 pounds. Her BMI is 29.1. This places the patient in the overweight category. Weight loss has been recommended, and collaboration with the patient's primary care physician has been suggested.
== END 2018-03-27 23:59 ==
LOC: WC 15:19
PROVIDERS: Family Provider Family Medicine; PCP Family Medicine; Visit Provider Surgery
DX: Z09 Encounter for follow-up examination after completed treatment for conditions other than malignant neoplasm (principal); L93.0 Discoid lupus erythematosus; I10 Essential (primary) hypertension; G40.909 Epilepsy, unspecified, not intractable, without status epilepticus; E78.5 Hyperlipidemia, unspecified; L98.1 Factitial dermatitis
CPT/HCPCS: 99212; G0463

== ENCOUNTER → 2018-06-01 09:25 | Outpatient (CLI) | payer MEDICARE, MEDICAID, SELFPAY ==
[2018-06-01 11:13] LABS: Hemoglobin 12.4 g/dl (12.0-15.0); Mean Corp Hgb Conc 32.6 g/gl (32-36); Mean Corpuscular Hgb 28.7 pg (27.0-32.0); Platelet Count 297 K/mm3 (150-450); RBC Distribution Width CV 13.9 % (11.6-14.6); RBC Distribution Width SD 44.2 fl (35.1-43.9); Red Blood Count 4.32 M/mm3 (4.2-5.4); White Blood Count 6.3 K/mm3 (4.4-11.0)
[2018-06-01 11:22] LABS: Scan Indicated on CBC? Y/N NO
[2018-06-01 11:57] LABS: AST(SGOT) 18 U/L (15-37); Alanine Aminotransfer ALT/SGPT 29 U/L (13-56); Albumin, Serum 3.7 g/dL (3.2-5.0); Alkaline Phosphatase 62 U/L (45-117); Anion Gap 13 (5-15); BUN 8 mg/dL (7-18); BUN/Creat Ratio 9.8 RATIO (10-20); Calcium,Total 8.8 mg/dL (8.5-10.1); Chloride 104 mmol/L (98-107); Cholesterol 168 mg/dL (200); Creatinine, Serum 0.81 mg/dL (0.55-1.02); EST Glomerular Filtration Rate 74 mL/min (>60); Est Glom Filt Rate - Afr Amer 89 mL/min (>60); Globulin 3.8 g/dL (2.2-4.2); Glucose 86 mg/dL (74-106); High Density Lipoprotein 44 mg/dL; Potassium 3.8 mmol/L (3.5-5.1); Protein, Total 7.5 g/dL (6.4-8.2); Sodium Level 140 mmol/L (136-145); Thyroid Stim Hormone (TSH) 2.86 uIU/mL (0.358-3.74); Triglycerides 200 mg/dL; Very Low Density Lipoprotein 40 mg/dL (5-40)
[2018-06-02 08:45] LABS: Vitamin D,25 Hydroxy 15.8 ng/mL (29.95-100.01)
== END ==
PROVIDERS: Family Provider Family Medicine; PCP Family Medicine; Visit Provider Family Medicine
DX: I10 Essential (primary) hypertension (principal); E78.5 Hyperlipidemia, unspecified; E03.9 Hypothyroidism, unspecified; E55.9 Vitamin D deficiency, unspecified
CPT/HCPCS: 36415; 80053; 80061; 82306; 84443; 85027